=== PATIENT | male | born 1995 | race Caucasian/White ===

== ENCOUNTER 2016-05-18 23:55 | Emergency (ER) | payer BC ==
[~2016-05-18] VITALS: Ht 180.3 cm; Wt 75.0 kg
[~2016-05-18 23:55] MED LIST: ACCUTANE PO; CETI10TA84 PO
[2016-05-18 23:59] VITALS: TEMP 36.8; Ht 180.3 cm; Wt 75.0 kg
[2016-05-19 00:43] LABS: ISTAT CREATININE 1.1 mg/dl (0.6-1.3); ISTAT HEMOGLOBIN 13.9 g/dl (14.0-18.0); ISTAT IONIZED CALCIUM 1.22 mmol/l (1.12-1.32)
--- NOTE | 2016-05-19 01:20 | EMERGENCY ROOM VISIT NOTE ---
History Report prepared by Marcia: Norris Kimble Under the Supervision of: Dr. Bobo Aponte D.O. First contact with patient: 00:17 Chief Complaint: CARDIAC ASSESSMENT Stated Complaint: CHEST TIGHTNESS/ANXIOUS Nursing Triage Summary: one hour prior to arrival patient was struck in the chest with a hockey puck and had chest discomfort and patient continued playing . patient then states he became anxious feeling and began to have numbness and tingling his his hands . patient states he has had anxiety before but nothing like this . currently denies any chest discomfort . History of Present Illness The patient is a 20 year old male who presents to the Emergency Room with complaints of persistent chest pain beginning earlier this evening. He notes he was playing hockey and was hit by another player in his chest and fell to the ice. He sat out on the bench and later started to feel lightheaded, weak, and numb. The numbness worsened and he began shaking as he went to the highway engineer. He has since calmed down, and denies having this before. The patient denies having any shortness of breath associated with his symptoms. Source of History: patient Onset: earlier this evening Position: chest Quality: other (chest pain) Timing: other (persistent) Associated Symptoms: + numbness, + weakness Note: The patient reports having dizziness. Review of Systems See HPI for pertinent positives & negatives. A total of 10 systems reviewed and were otherwise negative. Past Medical & Surgical No known past history. Family History No pertinent family history stated. Social History Smoking Status: Never Smoker Alcohol Use: occasionally Drug Use: cocaine, marijuana, other Marital Status: single Current/Historical Medications No Active Prescriptions or Reported Meds Allergies Coded Allergies: Penicillins (Verified Allergy, Unknown, HIVES, 05/19/16) Physical Exam Vital Signs Date Time Temp Pulse Resp B/P Pulse Ox O2 Delivery O2 Flow Rate FiO2 05/19/16 00:03 86 05/18/16 23:59 36.8 95 136/81 96 Room Air 05/18/16 23:59 96 Room Air Physical Exam CONSTITUTIONAL/VITAL SIGNS: Reviewed / noted above. GENERAL: Non-toxic in appearance. INTEGUMENTARY: Warm, dry, and [place]. HEAD: Normocephalic. EYES: without scleral icterus or trauma. ENT/OROPHARYNX: clear and moist. LYMPHADENOPATHY/NECK: Is supple without lymphadenopathy or meningismus. RESPIRATORY: Lungs clear and equal. CARDIOVASCULAR: Regular rate and rhythm. GI/ABDOMEN: Soft and nontender. No organomegaly or pulsatile mass. No rebound or guarding. Normal bowel sounds. EXTREMITIES: Warm and well perfused. BACK: No CVA tenderness. NEUROLOGICAL: Intact without focal deficits. PSYCHIATRIC: normal affect. MUSCULOSKELETAL: Normally developed with good muscle tone. Medical Decision & Procedures ER Provider Diagnostic Interpretation: Chest x-ray:per my interpretation is negative for acute disease. No pneumonia, no pneumothorax, normal cardiomediastinal silhouette. Laboratory Results Test 05/19/16 00:29 05/19/16 00:31 Bedside Hemoglobin 13.9 g/dl (14.0-18.0) Bedside Hematocrit 41 % (42-52) Bedside Sodium 143 mEq/L (135-144) Bedside Potassium 3.3 mEq/L (3.3-5.0) Bedside Chloride 104 mEq/L (101-112) Bedside Total CO2 22 mEq/l (24-31) Anion Gap 21.0 mmol/L (16-25) Bedside Blood Urea Nitrogen 25 mg/dl (7-18) Bedside Creatinine 1.1 mg/dl (0.6-1.3) Bedside Glucose (other) 70 mg/dl (70-99) Bedside Ionized Calcium (Emanuel) 1.22 mmol/l (1.12-1.32) Bedside Troponin I 0.000 ng/ml (0-0.045) ECG Indication: chest pain Rate (beats per minute): 81 Rhythm: normal sinus Findings: no acute ischemic change, no ectopy ED Course 0018: Previous medical records were reviewed. The patient was evaluated in room C4. A complete history and physical examination was performed. 0120: On reevaluation, the patient is doing well. I discussed the results and findings with the patient. He verbalized agreement of the treatment plan. The patient was discharged home. Medical Decision the differential was considered includes acute myocardial infarction, acute coronary syndrome, myocarditis, pericarditis, pericardial effusions /tamponad, esophageal perforation, thoracic aortic dissection, pulmonary embolism, pneumonia, pneumothorax, pancreatitis, shingles, acute cholecystitis, perforated abdominal viscus. This is a 20-year-old male who presents to the ED with a chief complaint of chest discomfort as well as lightheadedness. The patient states that he was playing hockey when he got hit by another player in the chest and caused him to fall to the ground. He states that he was feeling fine until a period and a half later he began feeling lightheaded and became numb and his arms and legs and had carpopedal spasm. Because of the symptoms, he came in for evaluation. His vital signs are normal. His physical exam was normal. His EKG shows a normal sinus rhythm. A chest x-ray did not show any acute disease. Blood work was unremarkable. The patient was told results the test. He is felt to be stable for discharge. Impression Primary Impression: Lightheaded Additional Impressions: Hyperventilation syndrome Chest injury Scribe Attestation The scribe's documentation has been prepared under my direction and personally reviewed by me in its entirety. I confirm that the note above accurately reflects all work, treatment, procedures, and medical decision making performed by me. Departure Information Dispostion Home / Self-Care Prescriptions No Active Prescriptions or Reported Meds Referrals [facility] ([facility]) Patient Instructions [facility] Additional Instructions Follow-up with your doctor for further care and evaluation in 1-2 days. Return to the emergency department for worsening or new symptoms or any concerns. You have been examined and treated today on an emergency basis only. This is not a substitute for, or an effort to provide, complete comprehensive medical care. It is impossible to recognize and treat all injuries or illnesses in a single emergency department visit. It is therefore important that you follow up closely with your doctor. Call as soon as possible for an appointment. Problem Qualifiers
[2016-05-19 01:27] VITALS: BP 123/74; PULSE 84; O2SAT 98
--- NOTE | 2016-05-19 07:31 | DIAGNOSTIC IMAGING REPORT ---
CHEST ONE VIEW PORTABLE HISTORY: Evaluate Fever/Sepsis COMPARISON: Chest 10/25/2015. FINDINGS: The lungs are clear. Cardiac silhouette is normal in size. No pleural effusions. No pneumothorax. IMPRESSION: No acute process. Electronically signed by: Eduardo Kearney M.D. 05/19/2016 7:30 AM Dictated Date/Time: 05/19/2016 7:29 AM
== END 2016-05-19 01:28 | disposition home or self-care (01) ==
LOC: EDBD 23:55 → C.EDC 23:57
DX: S29.9XXA Unspecified injury of thorax, initial encounter (principal); W21.220A Struck by ice hockey puck, initial encounter; Y93.22 Activity, ice hockey; F14.10 Cocaine abuse, uncomplicated; F12.10 Cannabis abuse, uncomplicated; F45.8 Other somatoform disorders